=== PATIENT | male | born 1965 | race Caucasian/White ===

== ENCOUNTER → 2017-04-08 | Outpatient (CLI) | payer OTHER ==
[2017-04-08 15:31] LABS: MEAN CORPUSCULAR HEMOGLOBIN 31.1 pg (27.0-33.0); MEAN CORPUSCULAR HGB CONC 34.1 g/dl (32.0-36.5); MEAN CORPUSCULAR VOLUME 91.2 fl (80.0-96.0); PLATELET COUNT, AUTOMATED 258 10^3/uL (150-450); RED CELL DISTRIBUTION WIDTH 12.2 % (11.5-14.5); WHITE BLOOD COUNT 8.1 10^3/uL (4.0-10.0)
--- NOTE | 2017-04-08 15:45 | REP ---
Chest two views HISTORY: Hypertension Comparison: 08/15/2015 The lungs are clear. The heart is normal in size. The pulmonary vasculature is normal in appearance. The bony structure is intact. IMPRESSION: No acute disease. Signed by Josh Goldman MD 04/08/2017 03:35 P
[2017-04-08 16:15] LABS: ALBUMIN 3.8 GM/DL (3.2-5.2); ALBUMIN/GLOBULIN RATIO 1.19 (1.00-1.93); ALKALINE PHOSPHATASE 84 U/L (45-117); ALT/SGPT 55 U/L (12-78); ANION GAP 4 MEQ/L (8-16); AST/SGOT 26 U/L (7-37); BILIRUBIN,TOTAL 0.2 MG/DL (0.2-1.0); BLOOD UREA NITROGEN 22 MG/DL (7-18); CALCIUM LEVEL 8.8 MG/DL (8.5-10.1); CARBON DIOXIDE LEVEL 32 MEQ/L (21-32); CHLORIDE LEVEL 104 MEQ/L (98-107); CHOLESTEROL LEVEL 215 MG/DL (<200); CREATININE FOR GFR 0.84 MG/DL (0.70-1.30); GLOMERULAR FILTRATION RATE > 60.0 (>56); GLUCOSE, FASTING 67 MG/DL (70-105); POTASSIUM SERUM 4.2 MEQ/L (3.5-5.1); SODIUM LEVEL 140 MEQ/L (136-145); TRIGLYCERIDES LEVEL 199 MG/DL (<150)
--- NOTE | 2017-04-11 00:10 | ECGEPIP ---
Stationary ECG Study [facility] Test Date: 2017-04-08 Pat Name: ROSITA ERNST Department: Room: - Gender: M Client Hr Manager: ANDREW : 1965 Requested By: Grzegorz Maya Order Number: [id number] Reading MD: Marvin Biswas Measurements Intervals [place] Rate: 58 P: 61 WI: 190 QRS: 55 QRSD: 88 T: 73 QT: 431 QTc: 425 Interpretive Statements SINUS BRADYCARDIA POSSIBLE LEFT ATRIAL ENLARGEMENT POSSIBLE LEFT VENTRICULAR HYPERTROPHY Possible prior septal infarct Compared to the last 3 tracings in the system, no significant changes. There was no manifestation of prior septal infarct Electronically Signed On 04-11-2017 0:09:53 EST by Marvin Biswas
== END ==
LOC: M LAB 15:00
PROVIDERS: ATTEND Family Medicine
DX: I10 Essential (primary) hypertension (principal)

== ENCOUNTER 2018-06-15 18:43 | Emergency (ER) | payer OTHER, SELFPAY ==
[~2018-06-15] VITALS: Ht 165.1 cm; Wt 73.6 kg
[2018-06-15] MEDS ORDERED: INDE60CA4 PO (18:51)
[2018-06-15] MEDS ORDERED: ADACEL/BOOSTRIX VACCINE (DIPHTH/PERTUSS/ACELL/TETANUS)0.5ML SYR (90715) IM ONE (20:00)
[2018-06-15] MEDS ORDERED: LIDOCAINE 1% MDV 20ML VIAL IM ONE (20:00)
[2018-06-15 20:31] VITALS: BP 178/81
== END 2018-06-15 20:37 | disposition home or self-care (01) ==
LOC: M ED 18:43
DX: S61.412A Laceration without foreign body of left hand, initial encounter (principal); W26.0XXA Contact with knife, initial encounter; Y92.018 Other place in single-family (private) house as the place of occurrence of the external cause; Y93.G1 Activity, food preparation and clean up; I10 Essential (primary) hypertension; Z79.899 Other long term (current) drug therapy

== ENCOUNTER 2018-06-27 16:51 | Emergency (ER) | payer OTHER, SELFPAY ==
[~2018-06-27] VITALS: Ht 165.1 cm; Wt 72.7 kg
[~2018-06-27 16:51] MED LIST: INDE60CA4 PO
[2018-06-27] MEDS ORDERED: PROP20TA72 PO (16:56)
[2018-06-27 18:29] VITALS: BP 191/90
[2018-06-27] MEDS ORDERED: NEOSPORIN OINT 0.9 GM PKT (FLOOR STOCK) TOP ONE (18:30)
== END 2018-06-27 18:33 | disposition home or self-care (01) ==
LOC: M ED 16:51
DX: Z48.02 Encounter for removal of sutures (principal)

== ENCOUNTER → 2019-07-14 | Outpatient (CLI) | payer OTHER ==
[~2019-07-14] MED LIST changes: +PROP20TA72 PO
[2019-07-14 15:36] LABS: HEMATOCRIT 42.1 % (42.0-52.0); HEMOGLOBIN 14.5 g/dl (13.5-17.5); MEAN CORPUSCULAR HEMOGLOBIN 32.4 pg (27.0-33.0); MEAN CORPUSCULAR HGB CONC 34.4 g/dl (32.0-36.5); MEAN CORPUSCULAR VOLUME 94.2 fl (80.0-96.0); PLATELET COUNT, AUTOMATED 209 10^3/uL (150-450); RED BLOOD COUNT 4.47 10^6/uL (4.30-6.10); WHITE BLOOD COUNT 6.5 10^3/uL (4.0-10.0)
--- NOTE | 2019-07-14 15:53 | REP ---
Clinical: Hypertension . Comparison: 04/08/2017 . Technique: PA and lateral. Findings: The mediastinum and cardiac silhouette are normal. The lung lamar are clear and without acute consolidation, effusion, or pneumothorax. The skeletal structures are intact and normal. Impression: 1. No acute cardiopulmonary process. Electronically Signed by Edmundo Rushing MD 07/14/2019 03:45 P
[2019-07-14 15:56] LABS: HEMOGLOBIN A1c 5.8 %
[2019-07-14 16:06] LABS: ALBUMIN 3.7 GM/DL (3.2-5.2); ALT/SGPT 29 U/L (12-78); BILIRUBIN,TOTAL 0.4 MG/DL (0.2-1.0); BLOOD UREA NITROGEN 22 MG/DL (7-18); CALCIUM LEVEL 8.4 MG/DL (8.5-10.1); CARBON DIOXIDE LEVEL 30 MEQ/L (21-32); CHLORIDE LEVEL 107 MEQ/L (98-107); CHOLESTEROL LEVEL 177 MG/DL (<200); CHOLESTEROL RISK RATIO 3.339 (<5); CREATININE FOR GFR 1.06 MG/DL (0.70-1.30); GLOMERULAR FILTRATION RATE > 60.0 (>56); GLUCOSE, FASTING 114 MG/DL (70-100); HDL CHOLESTEROL 53 MG/DL (>40); LDL CHOLESTEROL 52 MG/DL (<100); NON-HDL-C 124 MG/DL; POTASSIUM SERUM 3.9 MEQ/L (3.5-5.1); PROSTATIC SPECIFIC AG MONITOR 0.89 NG/ML (< 4.00); SODIUM LEVEL 138 MEQ/L (136-145); TOTAL PROTEIN 6.9 GM/DL (6.4-8.2); TRIGLYCERIDES LEVEL 361 MG/DL (<150)
[2019-07-14 16:08] LABS: TESTOSTERONE 579 NG/DL (241-827)
--- NOTE | 2019-07-14 16:26 | ECGEPIP ---
[facility] Test Date: 2019-07-14 Pat Name: ROSITA ERNST Department: Room: - Gender: Male Transcription Specialist: TANO : 1965 Requested By: Grzegorz Maya Order Number: [id number] Reading MD: Chase Bergeron Measurements Intervals [place] Rate: 59 P: 62 WI: 187 QRS: 48 QRSD: 85 T: 61 QT: 410 QTc: 408 Interpretive Statements SINUS BRADYCARDIA LEFT VENTRICULAR HYPERTROPHY, Nonspecific ST-T abnormalities Electronically Signed on 07-14-2019 16:26:12 EST by Chase Bergeron
[2019-07-15 09:22] LABS: RUBELLA IgG QUALITATIVE IMMUNE (IMMUNE)
== END ==
LOC: M LAB 14:48
PROVIDERS: ATTEND Family Medicine
DX: I10 Essential (primary) hypertension (principal); R53.83 Other fatigue; E03.9 Hypothyroidism, unspecified

== ENCOUNTER → 2021-11-21 | Outpatient (CLI) | payer OTHER ==
[2021-11-21 15:33] LABS: HEMATOCRIT 41.9 % (42.0-52.0); HEMOGLOBIN 14.3 g/dl (13.5-17.5); MEAN CORPUSCULAR HEMOGLOBIN 31.7 pg (27.0-33.0); MEAN CORPUSCULAR HGB CONC 34.1 g/dl (32.0-36.5); MEAN CORPUSCULAR VOLUME 92.9 fl (80.0-96.0); PLATELET COUNT, AUTOMATED 208 10^3/uL (150-450); RED BLOOD COUNT 4.51 10^6/uL (4.30-6.10); WHITE BLOOD COUNT 7.4 10^3/uL (4.0-10.0)
[2021-11-21 15:50] LABS: HEMOGLOBIN A1c 5.5 %
[2021-11-21 16:09] LABS: ALT/SGPT 27 U/L (12-78); BILIRUBIN,TOTAL 0.6 MG/DL (0.2-1.0); BLOOD UREA NITROGEN 20 MG/DL (7-18); CALCIUM LEVEL 9.5 MG/DL (8.5-10.1); CARBON DIOXIDE LEVEL 27 MEQ/L (21-32); CHLORIDE LEVEL 106 MEQ/L (98-107); CHOLESTEROL LEVEL 229 MG/DL (<200); CHOLESTEROL RISK RATIO 3.469 (<5); CREATININE FOR GFR 1.08 MG/DL (0.70-1.30); GLOMERULAR FILTRATION RATE > 60.0 (>56); GLUCOSE, FASTING 86 MG/DL (70-100); HDL CHOLESTEROL 66 MG/DL (>40); LDL CHOLESTEROL 144 MG/DL (<100); NON-HDL-C 163 MG/DL; POTASSIUM SERUM 4.2 MEQ/L (3.5-5.1); PROSTATIC SPECIFIC AG MONITOR 4.15 NG/ML (< 4.00); SODIUM LEVEL 138 MEQ/L (136-145); THYROID STIMULATING HORMONE 0.849 uIU/ML (0.358-3.740); TOTAL PROTEIN 7.2 GM/DL (6.4-8.2); TRIGLYCERIDES LEVEL 95 MG/DL (<150)
[2021-11-21 16:14] LABS: TESTOSTERONE 731 NG/DL (241-827); TOTAL 25(OH) VITAMIN D 42.1 NG/ML (30.0-100.0)
== END ==
LOC: M LAB 14:55
PROVIDERS: ATTEND Family Medicine
DX: I10 Essential (primary) hypertension (principal); R53.83 Other fatigue; E03.9 Hypothyroidism, unspecified